=== PATIENT | female | born 1980 | race Caucasian/White ===

== ENCOUNTER → 2017-05-24 | Outpatient (CLI) | payer BC ==
[~2017-05-24] MED LIST: ANT25 PO; BCPILLS PO; BUTACAP36 PO; LRS10 PO; MELO15TA4 PO; METH4PAK4 PO
== END | disposition home or self-care (01) ==
LOC: C.PAPS 10:06
PROVIDERS: ATTEND Obstetrics & Gynecology
DX: Z01.419 Encounter for gynecological examination (general) (routine) without abnormal findings (principal); Z87.898 Personal history of other specified conditions